=== PATIENT | female | born 1965 | race Caucasian/White ===

== ENCOUNTER 2021-12-15 09:33 | Inpatient (IN) | payer BC ==
[2021-12-15] MEDS ORDERED: VANCOMYCIN IV PER PHARMACY 1 EACH MISC MISCELLANE PRN (16:23)
[2021-12-15 17:00] LABS: HCT 32.7 % (34.0-46.0); Hypochromasia Marked; MCH 27.4 pg (25.0-35.0); MCHC 30.5 g/dL (31.0-37.0); MCV 89.9 fL (80.0-100.0); Mean Platelet Volume 8.4; Platelet Count 461 k/uL (150-450); RBC 3.64 m/uL (3.80-5.40); RDW 15.6 % (11.5-15.5); WBC 31.9 k/uL (3.8-10.6)
[2021-12-15] MEDS ORDERED: VANCOMYCIN 1,500 MG in SODIUM CHLORIDE 0.9% 250 ML IVPB ONE (17:00)
[2021-12-15 17:26] LABS: Albumin 2.5 g/dL (3.5-5.0)
[2021-12-15 17:29] LABS: Calcium 7.5 mg/dL (8.4-10.2); Potassium 3.4 mmol/L (3.5-5.1); Total Bilirubin 0.6 mg/dL (0.2-1.3); Total Protein 6.2 g/dL (6.3-8.2)
[2021-12-15] MEDS: METOPROLOL TARTRATE 25 MG TAB PO SCH (20:31)
[2021-12-15] MEDS ORDERED: CEFEPIME 2 GM in SODIUM CHLORIDE 0.9% 100 ML IVPB SCH (21:00)
[2021-12-16] MEDS: CLINDAMYCIN 900 MG in DEXTROSE 5% IN WATER 50 ML IVPB SCH ×6 (00:29→16:50)
[2021-12-16] MEDS: HEPARIN SODIUM,PORCINE/PF 5,000 UNIT/0.5 ML SYRINGE SQ SCH ×3 (00:30→16:46)
[2021-12-16] MEDS ORDERED: CEFEPIME 2 GM in SODIUM CHLORIDE 0.9% 100 ML IVPB SCH (05:00)
--- NOTE | 2021-12-16 07:39 | XR ---
EXAMINATION TYPE: XR chest 1V portable DATE OF EXAM: 12/16/2021 7:32 AM COMPARISON: Chest radiographs from 10/14/2021 TECHNIQUE: XR chest 1V portable Frontal view of the chest. CLINICAL INDICATION:Female, 56 years old with history of right effusion; FINDINGS: Lungs/Pleura: Elevated right diaphragm with suspected airspace consolidation with pleural effusion as characterize on CT. No evidence of pneumothorax. Pulmonary vascularity: Unremarkable. Heart/mediastinum: Cardiomediastinal silhouette is unremarkable. Musculoskeletal: No acute osseous pathology. IMPRESSION: Similar right sided airspace opacities as seen on CT from 12/15/2021. Given the CT appearance is very minimal right pleural effusion there appears to be masslike opacity in the right lower lobe. Cystic s tructure in the liver near the diaphragm could be directed to extension of infection into or from the liver.
[2021-12-16] MEDS: METOPROLOL TARTRATE 25 MG TAB PO SCH ×2 (08:57→20:49)
[2021-12-16] MEDS ORDERED: FAMOTIDINE 20 MG TAB PO SCH (09:00)
[2021-12-16 09:30] LABS: ALT 18 U/L (4-34); AST 27 U/L (14-36); African American GFR (CKD) >90 (>60 ml/min/1.73 sqM); Albumin 2.6 g/dL (3.5-5.0); Alkaline Phosphatase 140 U/L (38-126); Anion Gap 12 mmol/L; Blood Urea Nitrogen 25 mg/dL (7-17); Calcium 7.9 mg/dL (8.4-10.2); Carbon Dioxide 23 mmol/L (22-30); Chloride 104 mmol/L (98-107); Glucose 125 mg/dL (74-99); Non-African American GFR(CKD) 88 (>60 ml/min/1.73 sqM); Potassium 3.4 mmol/L (3.5-5.1); Sodium 139 mmol/L (137-145); Total Bilirubin 0.7 mg/dL (0.2-1.3); Total Protein 6.2 g/dL (6.3-8.2)
[2021-12-16 09:35] LABS: Anisocytosis Slight; Basophils # (A) 0.2 k/uL (0-0.2); Basophils % (A) 1 %; Eosinophils # (A) 0.1 k/uL (0-0.7); Eosinophils % (A) 0 %; HCT 33.2 % (34.0-46.0); HGB 10.7 gm/dL (11.4-16.0); Hypochromasia Marked; Lymphocytes # (A) 1.2 k/uL (1.0-4.8); Lymphocytes % (A) 4 %; MCH 29.2 pg (25.0-35.0); MCHC 32.2 g/dL (31.0-37.0); MCV 90.6 fL (80.0-100.0); Mean Platelet Volume 9.4; Monocytes # (A) 1.3 k/uL (0-1.0); Monocytes % (A) 4 %; Neutrophils # (A) 27.9 k/uL (1.3-7.7); Neutrophils % (A) 90 %; Platelet Count 581 k/uL (150-450); RBC 3.66 m/uL (3.80-5.40); RDW 16.2 % (11.5-15.5); WBC 30.8 k/uL (3.8-10.6)
[2021-12-16 09:41] LABS: Partial Thromboplastin Time 25.1 sec (22.0-30.0); Prothrombin Time 11.1 sec (9.0-12.0)
[2021-12-16] MEDS ORDERED: amLODIPine 5 MG TAB PO SCH (09:45)
--- NOTE | 2021-12-16 10:10 | P.CNPUL ---
History of Present Illness Consult date: 12/16/21 Reason for consult: pneumonia History of present illness: This is a 56-year-old female patient, obese, known history of hypertension, presented to [facility] with right flank and right upper quadrant pain of 2 days' duration. The patient was seen in the emergency department 5 days prior to the same problem. CAT scan of the abdomen and pelvis showed a large right lower lobe lung abscess along with some cystic lesions on the liver septated suspicious for liver abscess. The patient developed atrial ablation with RVR while in the emergency department. She was placed on IV heparin. She was placed on a Cardizem drip. She was admitted to the the ICU at [facility]. Following that, the patient got transferred to us due to concern of a lung abscess also. Blood cultures were negative. The white cell count was elevated at 29.7. The patient has a elevated sedimentation rate. Reviewing the records show that the patient was also at [facility] back in September 2021 for a possible UTI and back then the patient was treated with IV Zosyn for a gram-negative urine checked infection. She was benjamin darlin and she was discharged home back then. The urine culture that was done back in 09/30/2021 at [facility] was positive for E. coli. Blood cultures were negative. Subsequently, there was another urine culture on 10/16/2021 that was of normal and was positive for Enterococcus faecalis and Klebsiella pneumonia and the third culture that was done on 11/30/2021 at [facility] was positive for E. coli again and this was resistant to ampicillin and Unasyn. The most recent pro-calcitonin level from 12/14/2021 was 19.8 CAT scan of the abdomen and pelvis that was done on 09/30/2021 showed no evidence of any renal stones or hydronephrosis. It showed evidence of old or diffuse fatty infiltration of the liver and possibility of a nonspecific 8.5 cm posterior right hepatic dome mass for which a contrast-enhanced CAT scan/MRI was advised. MRI of the liver that was done on 10/06/2021 showed sharply marginated large mass in the superior right lobe of the liver that had features of focal nodular hyperplasia. Appearance had also radiating septae with central scar and cystic areas in this area of the liver abnormality was measuring 9 cm in the superior right lobe of the liver. There was another 1.8 cm on his answering fluid signal in the left lobe of the liver. The CAT scan of the abdomen and pelvis that was done on 12/11/2021 showed that the lung bases were essentially clear and there was a subtle large multi septated cystic lesion in the right hepatic lobe measuring 11 cm in size in addition to 1.6 cm left hepatic lobe cyst that was stable. The follow-up CAT scan of the abdomen and pelvis showed a right lower lobe consolidation, fluid density in the right lower lobe with a masslike collection measuring 7.3 cm in size and some elevation of the right hemidiaphragm. There was also multiple cystic masses in superior liver lobe with septations and the overall area was measuring 9 cm in size in addition to 2 cm single hypodensity in the left lobe of the liver. Note that the lung finding was new one was this one done on 12/11/2021. Note that the the liver findings were essentially unchanged compared to the earlier CAT scan. Review of Systems Constitutional: Reports fatigue, Reports fever, Reports weakness Eyes: denies as per HPI, denies blurred vision, denies bulging eye, denies decreased vision, denies diplopia, denies discharge, denies dry eye, denies irritation, denies itching, denies pain, denies photophobia, denies loss of peripheral vision, denies loss of vision, denies tunnel vision/blind spots Ears: deny: decreased hearing, ear discharge, earache, tinnitus Ears, nose, mouth and throat: Reports as per HPI Breasts: absent: as per HPI, change in shape, gynecomastia, masses, nipple di scharge, pain, skin changes, swelling Cardiovascular: Reports as per HPI Respiratory: Reports cough Gastrointestinal: Reports as per HPI, Reports abdominal pain, Reports nausea Genitourinary: Reports as per HPI Menstruation: Reports as per HPI Musculoskeletal: Reports as per HPI Musculoskeletal: absent: ankle pain, ankle stiffness, ankle swelling Integumentary: Reports as per HPI Neurological: Reports as per HPI Psychiatric: Reports as per HPI Endocrine: Reports as per HPI Hematologic/Lymphatic: Reports as per HPI Allergic/Immunologic: Reports as per HPI Past Medical History Additional Past Medical History / Comment(s): sepsis september 2021 (secondary to UTI) History of Any Multi-Drug Resistant Organisms: None Reported Past Surgical History: Tonsillectomy Past Anesthesia/Blood Transfusion Reactions: Postoperative Nausea & Vomiting (PONV) Past Psychological History: No Psychological Hx Reported Smoking Status: Never smoker Medications and Allergies Home Medications Medication Instructions Recorded Confirmed Type Metoprolol Tartrate [Lopressor] 25 mg PO BID 12/15/21 12/15/21 History Ondansetron Odt [Zofran Odt] 4 mg PO Q6H PRN 12/15/21 12/15/21 History Penicillin V Potassium [Pen Vee K] 500 mg PO QID 12/15/21 12/15/21 History amLODIPine [Norvasc] 5 mg PO DAILY 12/15/21 12/15/21 History Allergies Allergy/AdvReac Type Severity Reaction Status Date / Time nitrofurantoin AdvReac Diarrhea Verified 12/15/21 17:03 [From Macrobid] Physical Exam Vitals: Vital Signs Temp Pulse Resp BP Pulse Ox 12/16/21 08:00 98 F 94 16 131/62 92 L 12/16/21 04:00 97.9 F 85 18 126/67 98 12/16/21 00:00 98.1 F 86 18 124/68 95 12/15/21 20:00 98.0 F 88 18 139/65 93 L 12/15/21 15:30 97.4 F L 89 17 110/69 94 L Intake and Output 12/15/21 12/16/21 12/16/21 22:59 06:59 14:59 Intake Total 20 10 10 Balance 20 10 10 Intake: IV 20 10 10 Invasive Line 1 10 Invasive Line 2 10 10 10 Other: # Voids 2 Weight 84.942 kg 88 kg The patient appeared well nourished and normally developed. Vital signs as documented. Head exam is unremarkable. No scleral icterus or corneal arcus noted. Neck is without jugular venous distension, thyromegaly, or carotid bruits. Carotid upstrokes are brisk bilaterally. Lungs sounds are diminished in the right lung base, otherwise breath sounds are equal and symmetrical without any wheezes or rhonchi. Cardiac exam reveals the PMI to be normally sized and situated. Rhythm is regular. First and second heart sounds normal. No murmurs, rubs or gallops. Abdominal exam reveals normal bowel sounds, no masses, no organomegaly and no aortic enlargement. Extremities are nonedematous and both femoral and pedal pulses are normal.Examination of the skin revealed no evidence of significant rashes, suspicious appearing nevi or other concerning lesions.Neurologically, the patient is awake and alert and the patient does not have any focal neurological deficit. Cranial nerves are essentially intact. Results - Laboratory Findings CBC and BMP: 12/16/21 09:02 12/16/21 09:02 Abnormal lab findings: Abnormal Labs 12/15/21 12/15/21 16:53 16:53 WBC 31.9 H RBC 3.64 L Hgb 10.0 L Hct 32.7 L MCHC 30.5 L RDW 15.6 H Plt Count 461 H Sodium 136 L Potassium 3.4 L Carbon Dioxide 21 L BUN 25 H Glucose 157 H Calcium 7.5 L Alkaline Phosphatase 151 H Total Protein 6.2 L Albumin 2.5 L - Diagnostic Findings Chest x-ray: image reviewed CT scan - chest: image reviewed Assessment and Plan Plan: Liver abscess, originally showed on a CAT scan of the abdomen in September 2021 and this was confirmed by a MRI of the liver and subsequent CAT scan of the abdomen that was done on 12/11/2021. There is been some interval growth in the liver abscesses in the right hepatic lobe with another cystic lesion in the left. Right hepatic abscesses measuring around 11 cm in size with septation highly suspicious for underlying infection. The patient has leukocytosis and the patient also has elevated pro-calcitonin level supporting diagnosis of bacterial liver abscess Lung abscess in the right lower lobe , new finding, no evidence of any empyema. His is an intraparenchymal abscess, difficult to drain, probably related to the liver abscess. Is very much likely that the patient was septic and she seeded her right lung from the original sepsis Acute leukocytosis Right upper quadrant pain secondary to above Elevated pro-calcitonin level Frequent UTI with E. coli and enterococcus Plan Continue current antibiotic coverage including cefepime, clindamycin and vancomycin Recheck pro-calcitonin level Recheck urine culture and blood culture Echocardiogram to rule out endocarditis Interventional radiology for drainage of the liver abscess. Gen. surgery consult regarding the liver abscess
[2021-12-16 10:24] LABS: Poikilocytosis (M) Present
[2021-12-16 10:25] LABS: Rouleaux Present
--- NOTE | 2021-12-16 10:48 | US ---
EXAMINATION TYPE: US liver DATE OF EXAM: 12/16/2021 COMPARISON: CT from outside institution 12/11/2021, 12/15/2021 CLINICAL HISTORY: spots on liver. TECHNIQUE: Multiple sonographic images of the right upper quadrant are obtained. FINDINGS: EXAM MEASUREMENTS: Liver Length: 15.4 cm Gallbladder Wall: 0.15 cm CBD: 0.34 cm Right Kidney: 11.3 x 4.5 x 5.1 cm RABIES INSPECTOR NOTES: Exam limited by overlying bowel gas and body habitus Pancreas: Tail obscured by overlying bowel gas Liver: Heterogeneous, echogenic. Irregular shaped hypoechoic mass with posterior acoustic enhanceme nt in the right lobe measuring 2.6 x 2.9 x 2.7cm. Smaller anechoic mass with septations in the left lobe measuring 1.6 x 1.7 x 2.2cm. No other definite masses visualized. Gallbladder: Tiny multiple mobile echogenic foci visualized. Evidence for sonographic Robles's sign: No CBD: wnl Right Kidney: No hydronephrosis IMPRESSION: Favor multilocular liver abscess. There may be associated lung abscess, empyema. Cholelithiasis.
--- NOTE | 2021-12-16 11:00 | P.GSCN ---
History of Present Illness Consult date: 12/16/21 Reason for Consult: lung abcess Requesting physician: Marcella Marin History of present illness: This is a 56 year old obese female who follows on an outpatient basis with Dr. Stapleton for primary care. She has a previous medical history of recent diagnosis of hypertension, as well as several UTIs and hospitalizations recently for sepsis. This patient had UTI in September of this year and was treated with antibiotics for E coli. During that admission she had a CT abdomen and pelvis demonstrating no kidney stones or hydronephrosis, there was diffuse fatty infiltration of the liver and nonspecific 8.5 cm posterior right hepatic mass. Follow up MRI demonstrated sharply marginated large mass in the superior right l obe of the liver that had features of focal nodular hyperplasia. Appearance had also radiating septae with central scar and cystic areas in this area of the liver abnormality was measuring 9 cm in the superior right lobe of the liver. There was another 1.8 cm on his answering fluid signal in the left lobe of the liver. Per the patient she saw Dr. Stormy Skinner but she is unclear with what he told her. She had folllowed up with Dr. Meek who, according to the patient, said she had nothing wrong with her lungs. She had a UTI again at the beginning of November, again E coli which was resistant to ampicillin and Unasyn, and was placed on antibiotics by her primary care physician. Her WBC was elevated, she was instructed to report to the emergency room 12/11/21 where she had a CT abdomen and pelvis demonstrating the lung bases were essentially clear and there was a subtle large multi septated cystic lesion in the right hepatic lobe measuring 11 cm in size in addition to 1.6 cm left hepatic lobe cyst that was stable. She was discharged home from the ER at [facility]. She reported back to [facility] ER over the weekend with complaints of right sided flank and RUQ pain along with some shortness of breath. She also endorsed fever of 101F and chills. A CT of the chest, abdomen and pelvis was again completed, this time demonstrating right lower lobe consolidation, fluid density in the right lower lobe with a masslike collection measuring 7.3 cm in size and some elevation of the right hemidiaphragm, multiple cystic masses in superior liver lobe with septations and the overall area measuring 9 cm in size in addition to 2 cm single hypodensity in the left lobe of the liver. The lung finding was new compared to the CT dompleted 12/11/21. The patient was transferred to [facility] for cardiothoracic surgery consult. Of note the patient's percussive tone and at [facility] [place] was 19.8, white blood cell count on admission to [facility] was 31.9. Since transfer patient has been coughing up copious amounts of mccann thick sputum. Review of Systems Review of systems was completed and was negative except as noted - Constitutional Reports chills, Reports fever - Cardiovascular Reports chest pain, Reports shortness of breath - Respiratory Reports cough with sputum - Gastrointestinal Reports abdominal pain Past Medical History Past Medical History: Hypertension Additional Past Medical History / Comment(s): sepsis september 2021 (secondary to UTI) History of Any Multi-Drug Resistant Organisms: None Reported Past Surgical History: Tonsillectomy Past Anesthesia/Blood Transfusion Reactions: Postoperative Nausea & Vomiting (PONV) Past Psychological History: No Psychological Hx Reported Smoking Status: Never smoker Past Alcohol Use History: Rare Past Drug Use History: None Reported - Past Family History Mother Family Medical History: COPD Additional Family Medical History / Comment(s): at 70 years old; alcoholic Father Family Medical History: COPD Additional Family Medical History / Comment(s): in March 2021 Medications and Allergies Home Medications Medication Instructions Recorded Confirmed Type Metoprolol Tartrate [Lopressor] 25 mg PO BID 12/15/21 12/15/21 History Ondansetron Odt [Zofran Odt] 4 mg PO Q6H PRN 12/15/21 12/15/21 History Penicillin V Potassium [Pen Vee K] 500 mg PO QID 12/15/21 12/15/21 History amLODIPine [Norvasc] 5 mg PO DAILY 12/15/21 12/15/21 History Allergies Allergy/AdvReac Type Severity Reaction Status Date / Time nitrofurantoin AdvReac Diarrhea Verified 12/15/21 17:03 [From Macrobid] Surgical - Exam Vital Signs Temp Pulse Resp BP Pulse Ox 97.4 F L 89 17 110/69 94 L 12/15/21 15:30 12/15/21 15:30 12/15/21 15:30 12/15/21 15:30 12/15/21 15:30 CONSTITUTIONAL: Awake and alert, appears comfortable, cooperative, well-develo ped, well-nourished, no pain, no acute distress EYES: Pupils equal, round, reactive to light, normal ocular movement ENT: Moist mucous membranes without oral lesions present NECK: No masses, no bruits, trachea midline RESPIRATORY: Lungs sounds diminished on the right side. Respirations even, n onlabored. Currently on room air with oxygen saturation 99%. Strong productive cough. No chest wall deformities. No clubbing or cyanosis present CARDIOVASCULAR: S1, S2 present. Regular rate and rhythm, sinus rhythm on telemetry. Palpable peripheral pulses bilaterally. No edema present. No calf pain or tenderness noted. GASTROINTESTINAL: Abdomen soft, nontender, nondistended without masses or organomegaly noted. There is no rebound or guarding present. Active bowel sounds present 4 quadrants. GENITOURINARY: Deferred INTEGUMENTARY: Skin is warm and dry with evidence of good perfusion. NEUROLOGIC: Cranial nerves II through XII intact, normal coordination, no obvious motor or sensory deficits, speech is normal MUSKULOSKELETAL: Able to move all extremities, strength equal bilaterally, normal posture PSYCHIATRIC: Alert and oriented to person place and time, appropriate affect, intact judgment and insight Results - Labs 12/16/21 09:02 12/16/21 09:02 Abnormal Lab Results - Last 24 Hours (Table) 12/15/21 12/15/21 12/16/21 Range/Units 16:53 16:53 09:02 WBC 31.9 H (3.8-10.6) k/uL RBC 3.64 L (3.80-5.40) m/uL Hgb 10.0 L (11.4-16.0) gm/dL Hct 32.7 L (34.0-46.0) % MCHC 30.5 L (31.0-37.0) g/dL RDW 15.6 H (11.5-15.5) % Plt Count 461 H (150-450) k/uL Neutrophils # (1.3-7.7) k/uL Monocytes # (0-1.0) k/uL Sodium 136 L (137-145) mmol/L Potassium 3.4 L 3.4 L (3.5-5.1) mmol/L Carbon Dioxide 21 L (22-30) mmol/L BUN 25 H 25 H (7-17) mg/dL Glucose 157 H 125 H (74-99) mg/dL Calcium 7.5 L 7.9 L (8.4-10.2) mg/dL Alkaline Phosphatase 151 H 140 H (38-126) U/L Total Protein 6.2 L 6.2 L (6.3-8.2) g/dL Albumin 2.5 L 2.6 L (3.5-5.0) g/dL 12/16/21 Range/Units 09:02 WBC 30.8 H (3.8-10.6) k/uL RBC 3.66 L (3.80-5.40) m/uL Hgb 10.7 L (11.4-16.0) gm/dL Hct 33.2 L (34.0-46.0) % MCHC (31.0-37.0) g/dL RDW 16.2 H (11.5-15.5) % Plt Count 581 H (150-450) k/uL Neutrophils # 27.9 H (1.3-7.7) k/uL Monocytes # 1.3 H (0-1.0) k/uL Sodium (137-145) mmol/L Potassium (3.5-5.1) mmol/L Carbon Dioxide (22-30) mmol/L BUN (7-17) mg/dL Glucose (74-99) mg/dL Calcium (8.4-10.2) mg/dL Alkaline Phosphatase (38-126) U/L Total Protein (6.3-8.2) g/dL Albumin (3.5-5.0) g/dL Diabetes panel 12/15/21 12/16/21 Range/Units 16:53 09:02 Sodium 136 L 139 (137-145) mmol/L Potassium 3.4 L 3.4 L (3.5-5.1) mmol/L Chloride 103 104 (98-107) mmol/L Carbon Dioxide 21 L 23 (22-30) mmol/L BUN 25 H 25 H (7-17) mg/dL Creatinine 0.99 0.75 (0.52-1.04) mg/dL Glucose 157 H 125 H (74-99) mg/dL Calcium 7.5 L 7.9 L (8.4-10.2) mg/dL AST 25 27 (14-36) U/L ALT 18 18 (4-34) U/L Alkaline Phosphatase 151 H 140 H (38-126) U/L Total Protein 6.2 L 6.2 L (6.3-8.2) g/dL Albumin 2.5 L 2.6 L (3.5-5.0) g/dL Calcium panel 12/15/21 12/16/21 Range/Units 16:53 09:02 Calcium 7.5 L 7.9 L (8.4-10.2) mg/dL Albumin 2.5 L 2.6 L (3.5-5.0) g/dL Pituitary panel 12/15/21 12/16/21 Range/Units 16:53 09:02 Sodium 136 L 139 (137-145) mmol/L Potassium 3.4 L 3.4 L (3.5-5.1) mmol/L Chloride 103 104 (98-107) mmol/L Carbon Dioxide 21 L 23 (22-30) mmol/L BUN 25 H 25 H (7-17) mg/dL Creatinine 0.99 0.75 (0.52-1.04) mg/dL Glucose 157 H 125 H (74-99) mg/dL Calcium 7.5 L 7.9 L (8.4-10.2) mg/dL Adrenal panel 12/15/21 12/16/21 Range/Units 16:53 09:02 Sodium 136 L 139 (137-145) mmol/L Potassium 3.4 L 3.4 L (3.5-5.1) mmol/L Chloride 103 104 (98-107) mmol/L Carbon Dioxide 21 L 23 (22-30) mmol/L BUN 25 H 25 H (7-17) mg/dL Creatinine 0.99 0.75 (0.52-1.04) mg/dL Glucose 157 H 125 H (74-99) mg/dL Calcium 7.5 L 7.9 L (8.4-10.2) mg/dL Total Bilirubin 0.6 0.7 (0.2-1.3) mg/dL AST 25 27 (14-36) U/L ALT 18 18 (4-34) U/L Alkaline Phosphatase 151 H 140 H (38-126) U/L Total Protein 6.2 L 6.2 L (6.3-8.2) g/dL Albumin 2.5 L 2.6 L (3.5-5.0) g/dL - Imaging Chest x-ray: report reviewed, image reviewed CT scan - abdomen: report reviewed, image reviewed CT scan - chest: report reviewed, image reviewed CT scan - pelvis: report reviewed, image reviewed Assessment and Plan Assessment: 1. Lung abscess right lower lobe, new on CT 12/15/[address] 12/11/2021 2. Liver abscess with interval growth from September to November 3. Leukocytosis, elevated calcitonin 4. Right flank and right upper quadrant pain present on admission 5. Frequent urinary tract infection with E. coli with hospitalization for sepsis 6. Recent diagnosis of hypertension, treated 7. Recent diagnosis of paroxysmal atrial fibrillation at [facility], currently sinus rhythm Plan: The patient was seen and examined this morning with Dr. Palma as well as Dr. Paredes. Chart and diagnostics were reviewed in detail including all scans from [facility] [place]. From a cardiothoracic surgery standpoint there are no plans for surgical intervention. Recommend continuing antibiotics per infectious disease, bronchoscopy, general surgery evaluation for liver abscess. Ultrasound of the liver was ordered. Interventional radiology consulted for drainage of the liver abscess. Cardiology has ready been consulted for management of paroxysmal atrial fibrillation, echocardiogram ordered. Sputum culture, urine culture ordered. Medical management other comorbidities per primary care service. Thank you for this consult. We will continue to follow along with you and make further recommendations as appropriate. I have personally seen and examined the patient, performed the documentation and the assessment and plan as written. Number of minutes spent on the visit: 30. ARVIN Maravilla Attending Addendum: Pt seen and evaluated with EMT B above. Agree with her assessment and plan. I spent 30 minutes reviewing the patients imaging and data and discussing findings/plan with patient.
--- NOTE | 2021-12-16 12:43 | P.PN ---
Subjective Progress Note Date: 12/16/21 CARDIOLOGY CONSULT NOTE DICTATED 12/15/[address] CRUZ AT [facility]. CONSULT HAS BEEN SCANNED INTO EMR. PLEASE REFER TO FULL CARDIOLOGY CONSULT NOTE* HISTORY OF PRESENT ILLNESS: Patient examined this morning at the bedside. Patient denies chest pain or pressure. Reports mild SOB with a frequent productive cough this morning. Telemetry reveals sinus mechanism. Vital signs are stable. PHYSICAL EXAM: VITAL SIGNS: Reviewed. GENERAL: Well-developed in no acute distress. NECK: Supple. No JVD or thyromegaly LUNGS: Respirations even and unlabored. Lungs diminished to auscultation bilaterally. HEART: Regular rate and rhythm. S1 and S2 heard. EXTREMITIES: Normal range of motion. No clubbing or cyanosis. Peripheral pulses intact. No lower extremity edema ASSESSMENT: New-onset paroxysmal atrial fibrillation, currently maintaining sinus mechanism Right lower lobe lung abscess Liver abscess Leukocytosis Hypertension History of UTI with sepsis PLAN: Obtain 2D echo to assess cardiac structure and function No anticoagulation at this time Continue current cardiac medications Continue telemetry monitoring Pulmonary and CTS following Further recommendations pending patient course Patient to follow up outpatient with Dr. Cruz Nurse practitioner note has been reviewed by physician. Signing provider agrees with the documented findings, assessment, and plan of care. Objective - Vital Signs Vital signs: Vital Signs Temp 98 F 12/16/21 08:00 Pulse 94 12/16/21 08:00 Resp 16 12/16/21 08:00 BP 131/62 12/16/21 08:00 Pulse Ox 92 L 12/16/21 08:00 FiO2 Intake & Output 12/15/21 12/16/21 12/16/21 18:59 06:59 18:59 Intake Total 30 10 Balance 30 10 Weight 84.942 kg 88 kg Intake: IV 30 10 Invasive Line 1 10 Invasive Line 2 20 10 Other: # Voids 2 - Labs CBC & Chem 7: 12/16/21 09:02 12/16/21 09:02 Labs: Abnormal Lab Results - Last 24 Hours (Table) 12/15/21 12/15/21 12/16/21 Range/Units 16:53 16:53 09:02 WBC 31.9 H (3.8-10.6) k/uL RBC 3.64 L (3.80-5.40) m/uL Hgb 10.0 L (11.4-16.0) gm/dL Hct 32.7 L (34.0-46.0) % MCHC 30.5 L (31.0-37.0) g/dL RDW 15.6 H (11.5-15.5) % Plt Count 461 H (150-450) k/uL Neutrophils # (1.3-7.7) k/uL Monocytes # (0-1.0) k/uL Sodium 136 L (137-145) mmol/L Potassium 3.4 L 3.4 L (3.5-5.1) mmol/L Carbon Dioxide 21 L (22-30) mmol/L BUN 25 H 25 H (7-17) mg/dL Glucose 157 H 125 H (74-99) mg/dL Calcium 7.5 L 7.9 L (8.4-10.2) mg/dL Alkaline Phosphatase 151 H 140 H (38-126) U/L Total Protein 6.2 L 6.2 L (6.3-8.2) g/dL Albumin 2.5 L 2.6 L (3.5-5.0) g/dL 12/16/21 Range/Units 09:02 WBC 30.8 H (3.8-10.6) k/uL RBC 3.66 L (3.80-5.40) m/uL Hgb 10.7 L (11.4-16.0) gm/dL Hct 33.2 L (34.0-46.0) % MCHC (31.0-37.0) g/dL RDW 16.2 H (11.5-15.5) % Plt Count 581 H (150-450) k/uL Neutrophils # 27.9 H (1.3-7.7) k/uL Monocytes # 1.3 H (0-1.0) k/uL Sodium (137-145) mmol/L Potassium (3.5-5.1) mmol/L Carbon Dioxide (22-30) mmol/L BUN (7-17) mg/dL Glucose (74-99) mg/dL Calcium (8.4-10.2) mg/dL Alkaline Phosphatase (38-126) U/L Total Protein (6.3-8.2) g/dL Albumin (3.5-5.0) g/dL
[2021-12-16] MEDS ORDERED: POTASSIUM CHLORIDE ER 20 MEQ TAB.ER PO STA (13:00)
--- NOTE | 2021-12-16 13:06 | P.HPIM ---
History of Present Illness 56-year-old pleasant female was transferred from [facility] patient presented with right upper quadrant abdominal pain patient is found to have abscess. These lesions were found on the computed tomography scan few days befo re the this hospitalization at the time and the patient was believed to have cystic lesions. Patient has abscesses in the liver as well patient was started on Zosyn patient was subsequently transferred here for evaluation by current thoracic surgery. Patient does have leukocytosis doesn't have any fever at this time is still having right upper quadrant abdominal pain but improved compared to yesterday patient pain in the right upper quadrant is pleuritic in nature. Patient for calcitonin was around 19. REVIEW OF SYSTEMS: CONSTITUTIONAL: No fever, no malaise, no fatigue. HEENT: No recent visual problems or hearing problems. Denied any sore throat. CARDIOVASCULAR: No orthopnea, PND, no palpitations, no syncope. PULMONARY: No shortness of breath, no cough, no hemoptysis. GASTROINTESTINAL: No diarrhea, no nausea, no vomiting. NEUROLOGICAL: No headaches, no weakness, no numbness. HEMATOLOGICAL: Denies any bleeding or petechiae. GENITOURINARY: Denies any burning micturition, frequency, or urgency. MUSCULOSKELETAL/RHEUMATOLOGICAL: Denies any joint pain, swelling, or any muscle pain. ENDOCRINE: Denies any polyuria or polydipsia. The rest of the 14-point review of systems is negative. PHYSICAL EXAMINATION: GENERAL: The patient is alert and oriented x3, not in any acute distress. Well developed, well nourished. HEENT: Pupils are round and equally reacting to light. EOMI. No scleral icterus. No conjunctival pallor. Normocephalic, atraumatic. No pharyngeal erythema. No thyromegaly. CARDIOVASCULAR: S1 and S2 present. No murmurs, rubs, or gallops. PULMONARY: Chest is clear to auscultation, no wheezing or crackles. ABDOMEN: Soft, nontender, nondistended, normoactive bowel sounds. No palpable organomegaly. MUSCULOSKELETAL: No joint swelling or deformity. EXTREMITIES: No cyanosis, clubbing, or pedal edema. NEUROLOGICAL: Gross neurological examination did not reveal any focal deficits. SKIN: No rashes. Assessment and plan -Liver abscesses patient is on Zosyn patient the may need IR guided sampling of the abscess fluid. -Right lung abscess in the right lower lobe which as per pulmonology's intraparenchymal abscess -Sepsis and leukocytosis secondary to sepsis from abscess in the lung and liver -Hypertension -Hypokalemia potassium will be replaced DVT prophylaxis: Subcutaneous heparin Past Medical History Past Medical History: Hypertension Additional Past Medical History / Comment(s): sepsis september 2021 (secondary to UTI) History of Any Multi-Drug Resistant Organisms: None Reported Past Surgical History: Tonsillectomy Past Anesthesia/Blood Transfusion Reactions: Postoperative Nausea & Vomiting (PONV) Past Psychological History: No Psychological Hx Reported Smoking Status: Never smoker Past Alcohol Use History: Rare Past Drug Use History: None Reported - Past Family History Mother Family Medical History: COPD Additional Family Medical History / Comment(s): at 70 years old; alcoholic Father Family Medical History: COPD Additional Family Medical History / Comment(s): in March 2021 Medications and Allergies Home Medications Medication Instructions Recorded Confirmed Type Metoprolol Tartrate [Lopressor] 25 mg PO BID 12/15/21 12/15/21 History Ondansetron Odt [Zofran Odt] 4 mg PO Q6H PRN 12/15/21 12/15/21 History Penicillin V Potassium [Pen Vee K] 500 mg PO QID 12/15/21 12/15/21 History amLODIPine [Norvasc] 5 mg PO DAILY 12/15/21 12/15/21 History Allergies Allergy/AdvReac Type Severity Reaction Status Date / Time nitrofurantoin AdvReac Diarrhea Verified 12/15/21 17:03 [From Macrobid] Physical Exam Vitals: Vital Signs Temp Pulse Resp BP BP Pulse Ox 12/16/21 12:59 83 16 131/67 97 12/16/21 08:00 98 F 94 16 131/62 92 L 12/16/21 04:00 97.9 F 85 18 126/67 98 12/16/21 00:00 98.1 F 86 18 124/68 95 12/15/21 20:00 98.0 F 88 18 139/65 93 L 12/15/21 15:30 97.4 F L 89 17 110/69 94 L Intake and Output 12/15/21 12/16/21 12/16/21 22:59 06:59 14:59 Intake Total 20 10 10 Balance 20 10 10 Intake: IV 20 10 10 Invasive Line 1 10 Invasive Line 2 10 10 10 Other: # Voids 2 Weight 84.942 kg 88 kg Results CBC & Chem 7: 12/16/21 09:02 12/16/21 09:02 Labs: Abnormal Lab Results - Last 24 Hours (Table) 12/15/21 12/15/21 12/16/21 Range/Units 16:53 16:53 09:02 WBC 31.9 H (3.8-10.6) k/uL RBC 3.64 L (3.80-5.40) m/uL Hgb 10.0 L (11.4-16.0) gm/dL Hct 32.7 L (34.0-46.0) % MCHC 30.5 L (31.0-37.0) g/dL RDW 15.6 H (11.5-15.5) % Plt Count 461 H (150-450) k/uL Neutrophils # (1.3-7.7) k/uL Monocytes # (0-1.0) k/uL Sodium 136 L (137-145) mmol/L Potassium 3.4 L 3.4 L (3.5-5.1) mmol/L Carbon Dioxide 21 L (22-30) mmol/L BUN 25 H 25 H (7-17) mg/dL Glucose 157 H 125 H (74-99) mg/dL Calcium 7.5 L 7.9 L (8.4-10.2) mg/dL Alkaline Phosphatase 151 H 140 H (38-126) U/L Total Protein 6.2 L 6.2 L (6.3-8.2) g/dL Albumin 2.5 L 2.6 L (3.5-5.0) g/dL 12/16/21 Range/Units 09:02 WBC 30.8 H (3.8-10.6) k/uL RBC 3.66 L (3.80-5.40) m/uL Hgb 10.7 L (11.4-16.0) gm/dL Hct 33.2 L (34.0-46.0) % MCHC (31.0-37.0) g/dL RDW 16.2 H (11.5-15.5) % Plt Count 581 H (150-450) k/uL Neutrophils # 27.9 H (1.3-7.7) k/uL Monocytes # 1.3 H (0-1.0) k/uL Sodium (137-145) mmol/L Potassium (3.5-5.1) mmol/L Carbon Dioxide (22-30) mmol/L BUN (7-17) mg/dL Glucose (74-99) mg/dL Calcium (8.4-10.2) mg/dL Alkaline Phosphatase (38-126) U/L Total Protein (6.3-8.2) g/dL Albumin (3.5-5.0) g/dL
[2021-12-16] MEDS: VANCOMYCIN 1,500 MG in SODIUM CHLORIDE 0.9% 250 ML IVPB SCH (13:54)
[2021-12-16 14:28] LABS: Appearance,Urine Cloudy (Clear); Bilirubin,Urine Negative (Negative); Blood,Urine Small (Negative); Color,Urine Yellow; Glucose,Urine (UA) Negative (Negative); Ketones,Urine Negative (Negative); Leukocyte Esterase,Urine Small (Negative); Mucus,Urine Rare /hpf; Nitrite,Urine Negative (Negative); Protein,Urine Trace (Negative); RBC,Urine 5 /hpf (0-5); Specific Gravity,Urine 1.019 (1.001-1.035); Squamous Epithelial Cell,Urine 1 /hpf (0-4); Urobilinogen,Urine <2.0 mg/dL (<2.0); WBC,Urine 20 /hpf (0-5)
[2021-12-16] MEDS: ACETAMINOPHEN TAB 325 MG TAB PO PRN ×2 (14:58→20:58)
--- NOTE | 2021-12-16 15:05 | US ---
Discontinued liver aspiration HISTORY: Liver abscess Correlation to CT scan from outside institution 12/15/2021, 12/11/2021 There is limited visualization the multilocular abscess seen on CT. Pleural space is in close proximi ty. Exam somewhat limited by patient body habitus. IMPRESSION: Exam is aborted secondary to poor visualization. Case discussed with referring clinicians .
[2021-12-16] MEDS ORDERED: HYDROcodone/APAP 5-325MG 1 EACH TAB PO PRN (16:00)
[2021-12-16] MEDS: CEFEPIME 2 GM in SODIUM CHLORIDE 0.9% 100 ML IVPB SCH (16:50)
--- NOTE | 2021-12-16 16:52 | P.GSCN ---
History of Present Illness Consult date: 12/16/21 History of present illness: CHIEF COMPLAINT: Right flank pain HISTORY OF PRESENT ILLNESS: This is a 56-year-old female who presented to [facility] with right flank pain and right upper quadrant planning for about 2 days. She apparently had a computed tomography scan there that had shown evidence of right lung abscess and possible right liver abscess versus cystic lesion. Patient required a transfer to [facility] due to the lung abscess. Patient has been seen by cardiothoracic team as well as pulmonary service. Liver ultrasound has shown multilocular liver abscesses. There may be associated lung abscess, empyema and cholelithiasis. Patient was seen by interventional radiology for possible drainage of abscess. They were unable to drain the abscess. Patient is currently on IV antibiotics. General surgery was consulted in regards to the abscess. At this time patient is in the process of being transferred to [facility]. Patient does report having cough that is productive. Patient denies any fevers. PAST MEDICAL HISTORY: See list. PAST SURGICAL HISTORY: See list. MEDICATIONS: See list. ALLERGIES: See list. SOCIAL HISTORY: No illicit drug use. REVIEW OF SYSTEMS: CONSTITUTIONAL: Denies fever or chills. HEENT: Denies blurred vision, vision changes, or eye pain. Denies hemoptysis CARDIOVASCULAR: Denies chest pain or pressure. RESPIRATORY: No shortness of breath. GASTROINTESTINAL: See HPI for pertinent findings HEMATOLOGIC: Denies bleeding disorders. GENITOURINARY: Denies any blood in urine or increased urinary frequency. SKIN: Denies pruitis. Denies rash. PHYSICAL EXAM: VITAL SIGNS: Reviewed GENERAL: Well-developed in no acute distress. HEENT: No sclera icterus. Extraocular movements grossly intact. Moist buccal mucosa. Head is atraumatic, normocephalic. No nasal drainage. ABDOMEN: Soft. Nondistended. Tenderness to palpation of the right upper quadrant and right flank NEUROLOGIC: Alert and oriented. Cranial nerves II through XII grossly intact. LABORATORY DATA: WBC 30.8 Hgb 10.7 platelets 581 Sodium 139 potassium 3.4 creatinine so 0.75 AST 27 ALT 18 alk phos 140 total bilirubin 0.7 Pro-calcitonin 6.79 IMAGING: Liver ultrasound as stated above ASSESSMENT: 1. Liver abscess 2. Lung abscess 3. Cholelithiasis PLAN: -No surgical intervention planned -Agree with transfer to [facility] -Continue IV antibiotics -Continue supportive care Thank you for this consultation Physician Perinatal Instructor note has been reviewed by physician. Signing provider agrees with the documented findings, assessment, and plan of care. Past Medical History Past Medical History: Hypertension Additional Past Medical History / Comment(s): sepsis september 2021 (secondary to UTI) History of Any Multi-Drug Resistant Organisms: None Reported Past Surgical History: Tonsillectomy Past Anesthesia/Blood Transfusion Reactions: Postoperative Nausea & Vomiting (PONV) Past Psychological History: No Psychological Hx Reported Smoking Status: Never smoker Past Alcohol Use History: Rare Past Drug Use History: None Reported - Past Family History Mother Family Medical History: COPD Additional Family Medical History / Comment(s): at 70 years old; alcoholic Father Family Medical History: COPD Additional Family Medical History / Comment(s): in March 2021 Medications and Allergies Home Medications Medication Instructions Recorded Confirmed Type Metoprolol Tartrate [Lopressor] 25 mg PO BID 12/15/21 12/15/21 History Ondansetron Odt [Zofran Odt] 4 mg PO Q6H PRN 12/15/21 12/15/21 History Penicillin V Potassium [Pen Vee K] 500 mg PO QID 12/15/21 12/15/21 History amLODIPine [Norvasc] 5 mg PO DAILY 12/15/21 12/15/21 History Allergies Allergy/AdvReac Type Severity Reaction Status Date / Time nitrofurantoin AdvReac Diarrhea Verified 12/15/21 17:03 [From Macrobid] Surgical - Exam Vital Signs Temp Pulse Resp BP Pulse Ox 97.4 F L 89 17 110/69 94 L 12/15/21 15:30 12/15/21 15:30 12/15/21 15:30 12/15/21 15:30 12/15/21 15:30 Results - Labs 12/16/21 09:02 12/16/21 09:02 Abnormal Lab Results - Last 24 Hours (Table) 12/15/21 12/15/21 12/16/21 Range/Units 16:53 16:53 09:02 WBC 31.9 H (3.8-10.6) k/uL RBC 3.64 L (3.80-5.40) m/uL Hgb 10.0 L (11.4-16.0) gm/dL Hct 32.7 L (34.0-46.0) % MCHC 30.5 L (31.0-37.0) g/dL RDW 15.6 H (11.5-15.5) % Plt Count 461 H (150-450) k/uL Neutrophils # (1.3-7.7) k/uL Monocytes # (0-1.0) k/uL Sodium 136 L (137-145) mmol/L Potassium 3.4 L 3.4 L (3.5-5.1) mmol/L Carbon Dioxide 21 L (22-30) mmol/L BUN 25 H 25 H (7-17) mg/dL Glucose 157 H 125 H (74-99) mg/dL Calcium 7.5 L 7.9 L (8.4-10.2) mg/dL Alkaline Phosphatase 151 H 140 H (38-126) U/L Total Protein 6.2 L 6.2 L (6.3-8.2) g/dL Albumin 2.5 L 2.6 L (3.5-5.0) g/dL Urine Appearance (Clear) Urine Protein (Negative) Urine Blood (Negative) Ur Leukocyte Esterase (Negative) Urine WBC (0-5) /hpf Urine Mucus (None) /hpf 12/16/21 12/16/21 Range/Units 09:02 Unknown WBC 30.8 H (3.8-10.6) k/uL RBC 3.66 L (3.80-5.40) m/uL Hgb 10.7 L (11.4-16.0) gm/dL Hct 33.2 L (34.0-46.0) % MCHC (31.0-37.0) g/dL RDW 16.2 H (11.5-15.5) % Plt Count 581 H (150-450) k/uL Neutrophils # 27.9 H (1.3-7.7) k/uL Monocytes # 1.3 H (0-1.0) k/uL Sodium (137-145) mmol/L Potassium (3.5-5.1) mmol/L Carbon Dioxide (22-30) mmol/L BUN (7-17) mg/dL Glucose (74-99) mg/dL Calcium (8.4-10.2) mg/dL Alkaline Phosphatase (38-126) U/L Total Protein (6.3-8.2) g/dL Albumin (3.5-5.0) g/dL Urine Appearance Cloudy H (Clear) Urine Protein Trace H (Negative) Urine Blood Small H (Negative) Ur Leukocyte Esterase Small H (Negative) Urine WBC 20 H (0-5) /hpf Urine Mucus Rare H (None) /hpf Diabetes panel 12/15/21 12/16/21 Range/Units 16:53 09:02 Sodium 136 L 139 (137-145) mmol/L Potassium 3.4 L 3.4 L (3.5-5.1) mmol/L Chloride 103 104 (98-107) mmol/L Carbon Dioxide 21 L 23 (22-30) mmol/L BUN 25 H 25 H (7-17) mg/dL Creatinine 0.99 0.75 (0.52-1.04) mg/dL Glucose 157 H 125 H (74-99) mg/dL Calcium 7.5 L 7.9 L (8.4-10.2) mg/dL AST 25 27 (14-36) U/L ALT 18 18 (4-34) U/L Alkaline Phosphatase 151 H 140 H (38-126) U/L Total Protein 6.2 L 6.2 L (6.3-8.2) g/dL Albumin 2.5 L 2.6 L (3.5-5.0) g/dL Calcium panel 12/15/21 12/16/21 Range/Units 16:53 09:02 Calcium 7.5 L 7.9 L (8.4-10.2) mg/dL Albumin 2.5 L 2.6 L (3.5-5.0) g/dL Pituitary panel 12/15/21 12/16/21 Range/Units 16:53 09:02 Sodium 136 L 139 (137-145) mmol/L Potassium 3.4 L 3.4 L (3.5-5.1) mmol/L Chloride 103 104 (98-107) mmol/L Carbon Dioxide 21 L 23 (22-30) mmol/L BUN 25 H 25 H (7-17) mg/dL Creatinine 0.99 0.75 (0.52-1.04) mg/dL Glucose 157 H 125 H (74-99) mg/dL Calcium 7.5 L 7.9 L (8.4-10.2) mg/dL Adrenal panel 12/15/21 12/16/21 Range/Units 16:53 09:02 Sodium 136 L 139 (137-145) mmol/L Potassium 3.4 L 3.4 L (3.5-5.1) mmol/L Chloride 103 104 (98-107) mmol/L Carbon Dioxide 21 L 23 (22-30) mmol/L BUN 25 H 25 H (7-17) mg/dL Creatinine 0.99 0.75 (0.52-1.04) mg/dL Glucose 157 H 125 H (74-99) mg/dL Calcium 7.5 L 7.9 L (8.4-10.2) mg/dL Total Bilirubin 0.6 0.7 (0.2-1.3) mg/dL AST 25 27 (14-36) U/L ALT 18 18 (4-34) U/L Alkaline Phosphatase 151 H 140 H (38-126) U/L Total Protein 6.2 L 6.2 L (6.3-8.2) g/dL Albumin 2.5 L 2.6 L (3.5-5.0) g/dL
[2021-12-16] MEDS ORDERED: VANCOMYCIN 1,500 MG in SODIUM CHLORIDE 0.9% 250 ML IVPB SCH (17:00)
--- NOTE | 2021-12-16 17:53 | CA ---
Transthoracic Echo Report Name: Kayli Ferreira Age: 56 Gender: F : 1965 Exam Date: 12/16/2021 13:41 Exam Location: [place] [facility] Ht (in): 60 Wt (lb): 194 Ordering Physician: Myrtle Cox Attending/Referring Phys: [id number], Kenny Service Tester Kayli Burgos, LE Procedure CPT: Indications: LV function Cardiac Hx: Technical Quality: Good Contrast 1: Total Dose (mL): Contrast 2: Total Dose (mL): MEASUREMENTS (Male / Female) Normal Values 2D ECHO LV Diastolic Diameter PLAX 4.0 cm 4.2 - 5.9 / 3.9 - 5.3 cm LV Systolic Diameter PLAX 2.7 cm IVS Diastolic Thickness 1.0 cm 0.6 - 1.0 / 0.6 - 0.9 cm LVPW Diastolic Thickness 1.1 cm 0.6 - 1.0 / 0.6 - 0.9 cm LV Relative Wall Thickness 0.5 RV Internal Dim ED PLAX 2.7 cm LA Systolic Diameter LX 3.7 cm 3.0 - 4.0 / 2.7 - 3.8 cm LA Volume 60.6 cm??? 18 - 58 / 22 - 52 cm??? M-MODE Aortic Root Diameter MM 2.6 cm LA Systolic Diameter MM 4.0 cm LA Ao Ratio MM 1.5 MV E Point Septal Separation 0.6 cm AV Cusp Separation MM 1.9 cm DOPPLER MV Area PHT 3.8 cm??? Mitral E Point Velocity 84.0 cm/s Mitral A Point Velocity 105.4 cm/s Mitral E to A Ratio 0.8 MV Deceleration Time 201.2 ms MV E' Velocity 7.5 cm/s Mitral E to MV E' Ratio 11.2 TR Peak Velocity 265.6 cm/s TR Peak Gradient 28.2 mmHg Right Ventricular Systolic Press 33.2 mmHg FINDINGS Left Ventricle Left ventricular ejection fraction is estimated at 50-55%. Mildly increased left ventricular wall thickness. Right Ventricle Normal right ventricular size and function. Right ventricular systolic pressure within normal limits. Right Atrium Normal right atrial size. Left Atrium Mildly increased left atrial volume. Mitral Valve Structurally normal mitral valve. Mild mitral regurgitation. Aortic Valve Trileaflet aortic valve. Tricuspid Valve Structurally normal tricuspid valve. Pulmonic Valve Structurally normal pulmonic valve. Pericardium Normal pericardium. Aorta Normal size aortic root and proximal ascending aorta. CONCLUSIONS Normal LV function Mild mitral regurgitation Previewed by: Dr. Lefty Gonzalez MD (Electronically Signed) Final Date: 16 December 2021 17:53
[2021-12-16 20:13] VITALS: RESP 16
[2021-12-17] MEDS: CLINDAMYCIN 900 MG in DEXTROSE 5% IN WATER 50 ML IVPB SCH ×2 (00:27)
[2021-12-17] MEDS: HEPARIN SODIUM,PORCINE/PF 5,000 UNIT/0.5 ML SYRINGE SQ SCH (00:27)
[2021-12-17 03:50] VITALS: BP 138/72; PULSE 82; TEMP 98.4
[2021-12-17] MEDS: CEFEPIME 2 GM in SODIUM CHLORIDE 0.9% 100 ML IVPB SCH (04:47)
[2021-12-17] MEDS: VANCOMYCIN 1,500 MG in SODIUM CHLORIDE 0.9% 250 ML IVPB SCH (06:08)
--- NOTE | 2021-12-24 23:51 | P.CONS ---
History of Present Illness - Reason for Consult Consult date: 12/15/21 lung/liver abscess Requesting physician: Marcella Marin - Chief Complaint R sided abd pain x few days - History of Present Illness History of Present Illness :Patient is a 56-year female with a past medical history pertinent for hypertension initially presenting to the [facility] with right flank and right upper quadrant pain symptom was going on for about 2 days before presentation to the hospital patient did have CT abdominal pelvis with evidence of right lower lobe lung abscess along with cystic lesion in the liver suspected of liver abscess patient developed A. fib with RVR for the patient was transferred to the ICU patient was subsequently transferred to [facility] for drainage of this abscess patient is currently being treated with cefepime and clindamycin infectious disease was consulted for further management of antibiotic therapy patient on presentation to the hospital was afebrile and no fever have been recorded subsequently patient did have white count of 31.9 with a left shift kidney function normal liver enzymes are normal blood cultures obtained which currently pending patient complaining of pain mostly to the right side of her trunk describing to be more of a dull aching to sharp 6-7 or 10 no radiation was daily breath Review of system: CONSTITUTIONAL: Positive for weakness low-grade fever. EYES: No complaint. ENT: No complaint. RESPIRATORY: As per history of present illness CARDIOVASCULAR: No complaint. GENITOURINARY: No complaint. GASTROINTESTINAL: As per history of present illness. MUSCULOSKELETAL: No complaint. INTEGUMENTARY : No complaint. PSYCHOLOGIC: No complaint. ENDOCRINE: No complaint. NEUROLOGIC: No complaint. Past medical history : Reviewed, documented below Past surgical history : Reviewed, documented below Social history: Reviewed, documented below Medications: Reviewed, as documented below EXAMINATION: Vital sigans= Reviewed and documented below GENERAL DESCRIPTION: Middle-aged female lying in bed, no distress. No tachypnea or accessory muscle of respiration use. HEENT: Shows Pallor , no scleral icterus. Oral mucous membrane is dry. NECK: Trachea central, no thyromegaly. LUNGS: Unlabored breathing. Decreased breath sound the base. No wheeze or crac kle. HEART: S1, S2, regular rate and rhythm. ABDOMEN: Soft, mild right-sided tenderness , no guarding or rigidity EXTREMITIES: No edema feet SKIN: No rash, no masses palpable. NEUROLOGICAL: The patient is awake, alert, oriented x3, mood and affect normal. LABS AND RADIOLOGY: Reviewed results see below Assessment : 1patient presented to hospital with right-sided abdominal pain in this patient now with evidence of liver abscess as well as right lung abscess will need to cover for both gram-positive as well as gram-negative pathogen Plan: 1-we will wait for the IR drainage of this abscess and the fluid should be sent for culture both aerobic and anaerobic 2-patient to continue with cefepime and clindamycin while waiting for the work- up to be completed 3-gentle IV fluid We will follow on clinical condition and cultures to further adjust medication if needed Thank you for this consultation we will follow the patient along with you Past Medical History Additional Past Medical History / Comment(s): sepsis september 2021 (-) History of Any Multi-Drug Resistant Organisms: None Reported Past Surgical History: Tonsillectomy Past Anesthesia/Blood Transfusion Reactions: Postoperative Nausea & Vomiting (PONV) Past Psychological History: No Psychological Hx Reported Smoking Status: Never smoker - Past Family History Mother Family Medical History: COPD Additional Family Medical History / Comment(s): at 70 years old; alcoholic Father Family Medical History: COPD Additional Family Medical History / Comment(s): in March 2021 Medications and Allergies Home Medications Medication Instructions Recorded Confirmed Type Metoprolol Tartrate [Lopressor] 25 mg PO BID 12/15/21 12/15/21 History Ondansetron Odt [Zofran Odt] 4 mg PO Q6H PRN 12/15/21 12/15/21 History Penicillin V Potassium [Pen Vee K] 500 mg PO QID 12/15/21 12/15/21 History amLODIPine [Norvasc] 5 mg PO DAILY 12/15/21 12/15/21 History Allergies Allergy/AdvReac Type Severity Reaction Status Date / Time nitrofurantoin AdvReac Diarrhea Verified 12/15/21 17:03 [From Macrobid] Physical Exam Vitals: Vital Signs Temp Pulse Resp BP Pulse Ox 12/15/21 20:00 98.0 F 88 18 139/65 93 L 12/15/21 15:30 97.4 F L 89 17 110/69 94 L Intake and Output 12/15/21 12/15/21 12/15/21 06:59 14:59 22:59 Other: Weight 84.942 kg Results CBC & Chem 7: 12/16/21 09:02 12/16/21 09:02 Labs: Abnormal Lab Results - Last 24 Hours (Table) 12/15/21 12/15/21 Range/Units 16:53 16:53 WBC 31.9 H (3.8-10.6) k/uL RBC 3.64 L (3.80-5.40) m/uL Hgb 10.0 L (11.4-16.0) gm/dL Hct 32.7 L (34.0-46.0) % MCHC 30.5 L (31.0-37.0) g/dL RDW 15.6 H (11.5-15.5) % Plt Count 461 H (150-450) k/uL Sodium 136 L (137-145) mmol/L Potassium 3.4 L (3.5-5.1) mmol/L Carbon Dioxide 21 L (22-30) mmol/L BUN 25 H (7-17) mg/dL Glucose 157 H (74-99) mg/dL Calcium 7.5 L (8.4-10.2) mg/dL Alkaline Phosphatase 151 H (38-126) U/L Total Protein 6.2 L (6.3-8.2) g/dL Albumin 2.5 L (3.5-5.0) g/dL
--- NOTE | 2021-12-24 23:54 | P.PN ---
Subjective Progress Note Date: 12/16/21 Principal diagnosis: Lung/Liver abscess Patient is a 56-year-old female presenting to the hospital with right- sided abdominal/lower chest pain in this patient evidence of lung and liver abscess transferred to this facility for drainage of this abscess scheduled for this afternoon. On today's evaluation that is 12/16/2021, the patient denies having any fever or any chills, the patient pain to the right side of the chest and upper abdominal is currently controlled patient has no nausea vomiting patient denies having any shortness of breath no abdominal pain and no diarrhea Objective - Vital Signs Vital signs: Vital Signs Temp 98 F 12/16/21 08:00 Pulse 83 12/16/21 12:59 Resp 16 12/16/21 12:59 BP 131/67 12/16/21 12:59 Pulse Ox 97 12/16/21 12:59 FiO2 Intake & Output 12/15/21 12/16/21 12/16/21 18:59 06:59 18:59 Intake Total 30 10 Balance 30 10 Weight 84.942 kg 88 kg Intake: IV 30 10 Invasive Line 1 10 Invasive Line 2 20 10 Other: # Voids 2 - Exam GENERAL DESCRIPTION: Middle-aged female lying in bed, no distress. No tachypnea or accessory muscle of respiration use. LUNGS: Unlabored breathing. Decreased breath sound at the base HEART: S1, S2, regular rate and rhythm. No loud murmur ABDOMEN: Soft, no tenderness , guarding or rigidity, no organomegaly EXTREMITIES: No edema of feet. - Labs CBC & Chem 7: 12/16/21 09:02 12/16/21 09:02 Labs: Abnormal Lab Results - Last 24 Hours (Table) 12/15/21 12/15/21 12/16/21 Range/Units 16:53 16:53 09:02 WBC 31.9 H (3.8-10.6) k/uL RBC 3.64 L (3.80-5.40) m/uL Hgb 10.0 L (11.4-16.0) gm/dL Hct 32.7 L (34.0-46.0) % MCHC 30.5 L (31.0-37.0) g/dL RDW 15.6 H (11.5-15.5) % Plt Count 461 H (150-450) k/uL Neutrophils # (1.3-7.7) k/uL Monocytes # (0-1.0) k/uL Sodium 136 L (137-145) mmol/L Potassium 3.4 L 3.4 L (3.5-5.1) mmol/L Carbon Dioxide 21 L (22-30) mmol/L BUN 25 H 25 H (7-17) mg/dL Glucose 157 H 125 H (74-99) mg/dL Calcium 7.5 L 7.9 L (8.4-10.2) mg/dL Alkaline Phosphatase 151 H 140 H (38-126) U/L Total Protein 6.2 L 6.2 L (6.3-8.2) g/dL Albumin 2.5 L 2.6 L (3.5-5.0) g/dL 12/16/21 Range/Units 09:02 WBC 30.8 H (3.8-10.6) k/uL RBC 3.66 L (3.80-5.40) m/uL Hgb 10.7 L (11.4-16.0) gm/dL Hct 33.2 L (34.0-46.0) % MCHC (31.0-37.0) g/dL RDW 16.2 H (11.5-15.5) % Plt Count 581 H (150-450) k/uL Neutrophils # 27.9 H (1.3-7.7) k/uL Monocytes # 1.3 H (0-1.0) k/uL Sodium (137-145) mmol/L Potassium (3.5-5.1) mmol/L Carbon Dioxide (22-30) mmol/L BUN (7-17) mg/dL Glucose (74-99) mg/dL Calcium (8.4-10.2) mg/dL Alkaline Phosphatase (38-126) U/L Total Protein (6.3-8.2) g/dL Albumin (3.5-5.0) g/dL Assessment and Plan (1) Liver abscess Status: Acute Code(s): K75.0 - ABSCESS OF LIVER SNOMED Code(s): 12902642 Plan: -patient with a right thalamic abscess as well as abscess involving the liver patient is currently waiting for ultrasound guided drainage of this abscess fluid should be sent for culture both aerobes and anaerobes patient to continue with the cefepime and clindamycin antibiotics adjusted further on the basis of culture data Time with Patient: Less than 30
--- NOTE | 2022-01-05 11:51 | P.DS ---
Providers Date of admission: 12/15/21 15:17 Expected date of discharge: 01/15/22 Attending physician: Katheryn Montes MD Consults: 12/15/21 16:20 Consult Physician Routine Consulting Provider: Jack Paredes Consult Reason/Comments: lung abscess transfer from [facility] Do you want consulting provider notified?: Yes Consult Physician Routine Consulting Provider: Shireen Gregorio Consult Reason/Comments: lung abscess transfer from [facility] Do you want consulting provider notified?: Yes 12/15/21 16:21 Consult Physician Routine Consulting Provider: Rakesh Pollack Consult Reason/Comments: lung abscess transfer from [facility] Do you want consulting provider notified?: Yes 12/15/21 16:22 Consult Physician Routine Consulting Provider: Emanuel Osorio Consult Reason/Comments: NOS afib, converted transfer from [facility] Do you want consulting provider notified?: Yes, Notify in am 12/16/21 12:21 Consult Physician Routine Consulting Provider: Shane Swanson Consult Reason/Comments: liver mass/abscess Do you want consulting provider notified?: Already Contacted Primary care physician: [facility]: [facility] the thoracic surgery and interventional radiology for liver abscess intraparenchymal lung abscess. Patient was evaluated with pulmonary, interventional radiology. Interventional radiology attempted drainage of liver abscess which failed subsequently recommended transfer to tertiary facility. Pulmonology recommended the same. Patient was subsequently transferred to tertiary facility for further continuation of care. Plan - Discharge Summary Discharge Rx Participant: No New Discharge Prescriptions: No Action amLODIPine [Norvasc] 5 mg PO DAILY Penicillin V Potassium [Pen Vee K] 500 mg PO QID Metoprolol Tartrate [Lopressor] 25 mg PO BID Ondansetron Odt [Zofran Odt] 4 mg PO Q6H PRN PRN Reason: Nausea Discharge Medication List Metoprolol Tartrate [Lopressor] 25 mg PO BID 12/15/21 [History] Ondansetron Odt [Zofran Odt] 4 mg PO Q6H PRN 12/15/21 [History] Penicillin V Potassium [Pen Vee K] 500 mg PO QID 12/15/21 [History] amLODIPine [Norvasc] 5 mg PO DAILY 12/15/21 [History] Discharge Disposition: TRANSFER TO SHORT TERM HOSP
== END 2021-12-17 06:34 | disposition short-term general hospital (02) | DRG 871 ==
LOC: 3SCARD 15:17
PROVIDERS: ADMIT Internal Medicine; ATTEND Internal Medicine
DX: A41.9 Sepsis, unspecified organism (principal); J85.2 Abscess of lung without pneumonia; K75.0 Abscess of liver; E87.6 Hypokalemia; I48.0 Paroxysmal atrial fibrillation; I10 Essential (primary) hypertension; Z88.8 Allergy status to other drugs, medicaments and biological substances; Z79.899 Other long term (current) drug therapy; Z53.8 Procedure and treatment not carried out for other reasons
CPT/HCPCS: 71045; 76705; 80053; 80202; 81001; 84145; 85025; 85027; 85610; 85730; 87070; 87086; 87205; 93306